=== PATIENT | female | born 1975 | race Caucasian/White ===

== ENCOUNTER → 2018-05-09 | Outpatient (CLI) | payer BC, OTHER ==
--- NOTE | 2018-05-09 17:13 | KCIC ---
Bilateral digital screening mammograms with 3-D tomosynthesis: Reason for examination: Routine screening. Comparison is made to previous studies dated 12/11/2015 and 11/21/2014. Bilateral mammograms in CC and oblique projections were obtained with 2-D imaging and 3-D tomosynthesis imaging on a Siemens Inspiration unit and reviewed on the workstation. Interpretation was made with the benefit of CAD. The skin and nipples show no abnormalities. No abnormal axillary lymph nodes are seen. Bilateral breast implants are now present. The breast parenchyma is extremely dense. (Breast density: Category D.) There is suggestion of some nodularity posterior inferiorly in the left breast on implant displacement oblique view and centrally in the left breast on implant displacement cc view. Further evaluation with ultrasound is recommended. There are no other new dominant masses, suspicious calcifications or architectural distortion. Impression: Dense fibroglandular tissue. Nodularity suggested in the left breast on implant displacement views. Recommend further evaluation with ultrasound. Your patient's mammogram demonstrates that she has dense breast tissue (breast density category C or D), which could hide abnormalities, and if she has other risk factors for breast cancer that have been identified, she might benefit from supplemental screening tests that may be suggested by you as her ordering physician. Dense breast tissue, in and of itself, is a relatively common condition. Therefore, this information is not provided to cause undue concern, but rather to raise your awareness and to promote discussion with your patient regarding the presence of other risk factors, in addition to dense breast tissue. Your patient's mammography results will be sent to her. BI-RAD Category 0: Incomplete. Needs additional imaging evaluation. "Our facility is accredited by the [employer] Mammography Program." This patient's information has been entered into a reminder system for the patient to be notified with the results of her examination and a target date for the next mammogram. Electronically signed by: Jacqueline German MD (05/09/2018 5:10 PM) [id number]
== END | disposition home or self-care (01) ==
LOC: KCIC MAMMO 15:02
PROVIDERS: ATTEND Specialist
DX: Z12.31 Encounter for screening mammogram for malignant neoplasm of breast (principal)
CPT/HCPCS: 77063; 77067

== ENCOUNTER → 2018-05-27 | Outpatient (CLI) | payer BC ==
--- NOTE | 2018-05-27 11:38 | KCIC ---
EXAM: Left breast sonogram. HISTORY: 42-year-old female presents for evaluation of nodularity within the left breast demonstrated on a mammogram dated 05/09/2018. TECHNIQUE: Sonographic imaging of the left breast including all 4 quadrants and the retroareolar region was performed. COMPARISON: Mammogram dated 05/09/2018. FINDINGS: There is an oval circumscribed hypoechoic lesion at the 9:00 position 7 cm from the nipple measuring 9.3 mm. This demonstrates no architectural distortion common blood flow or suspicious posterior shadowing. The imaging appearance favors a cyst. There is also a suspected complicated cyst or benign fibrocystic lesion at the 3:30 position 7 cm for the nipple measuring 5.4 mm. There is dense breast parenchyma. IMPRESSION: 1. 9.3 mm suspected cyst at the 9:00 position and 5.4 mm complicated cyst or fibrocystic lesion at the 3:30 position. This is superimposed on dense breast parenchyma. This may account for nodularity of concern on the recent mammogram. 2. BI-RADS Category 3: Probably benign finding(s). Short term follow up with a diagnostic left breast mammogram and sonogram in 6 months is recommended. Electronically signed by: Tari Fuentes MD (05/27/2018 11:35 AM) [id number]
== END | disposition home or self-care (01) ==
LOC: KCIC US 11:14
PROVIDERS: ATTEND Specialist
DX: R92.8 Other abnormal and inconclusive findings on diagnostic imaging of breast (principal)
CPT/HCPCS: 76641

== ENCOUNTER → 2018-12-08 | Outpatient (CLI) | payer BC ==
--- NOTE | 2018-12-08 11:33 | KCIC ---
EXAM: Left breast diagnostic mammogram with tomosynthesis; left breast sonogram. HISTORY: 43-year-old female presents for 6 month follow-up evaluation of suspected benign findings within left breast demonstrated on a mammogram and sonogram dated 05/09/2018 and 05/27/2018. TECHNIQUE: Full-field digital craniocaudal and mediolateral oblique 2D and 3D tomosynthesis images of the left breast are obtained for evaluation. Computer aided detection with Cloud[employer] software version 9.3 was applied. Sonographic imaging of the left breast including all 4 quadrants and the retroareolar region was performed. COMPARISON: 05/09/2018 and 05/27/2018 and 12/11/2015 BREAST PARENCHYMAL DENSITY: Level D - Extremely dense. FINDINGS: There is no new suspicious mass, microcalcification or region of architectural distortion. There is an unremarkable subpectoral breast implant. Sonographic imaging of the left breast demonstrates a 5.7 mm benign-appearing suspected complicated cyst or fibrocystic lesion at the 3:30 position 7 cm from the nipple, not significantly changed compared to the prior study. There is also a circumscribed lobulated hypoechoic lesion at the 9:00 position 7 cm from the nipple measuring 9.8 mm in maximum dimension. This is stable when allowing for differences in imaging technique. This demonstrates no internal blood flow. There is dense surrounding breast parenchyma. There is no new suspicious finding. IMPRESSION: 1. No significant change in a 5.7 mm suspected benign complicated cyst or fibrocystic lesion at the 3:30 position and 9.8 mm complicated cyst or fibroadenoma with surrounding dense breast parenchyma at the 9:00 position. There is no new suspicious mammographic or sonographic finding. 2. BI-RADS Category 3: Probably benign finding(s). Repeat short-term follow-up evaluation with a left breast sonogram in 6 months is recommended to confirm a year of stability. This corresponds with a previously established bilateral mammography interval. If your mammogram demonstrates that you have dense breast tissue, which could hide abnormalities, and if you have other risk factors for breast cancer that have been identified, you might benefit from supplemental screening tests that may be suggested by your ordering physician. Dense breast tissue, in and of itself, is a relatively common condition. This information is not provided to cause undue concern, but rather to raise your awareness and to promote discussion with your physician regarding the presence of other risk factors, in addition to dense breast tissue. A report of your mammography results will be sent to you and your physician. You should contact your physician if you have any questions or concerns regarding this report. Mammography is a sensitive method for finding small breast cancers, but it does not detect them all and is not a substitute for careful clinical examination. A negative mammogram does not negate a clinically suspicious finding and should not result in delay in biopsying a clinically suspicious abnormality. PQRS compliance statement - Patient information was entered into a reminder system with a target due date for the next mammogram. "Our facility is accredited by the [employer] Mammography Program." Electronically signed by: Tari Fuentes MD (12/08/2018 11:29 AM) [id number]
== END | disposition home or self-care (01) ==
LOC: KCIC MAMMO 10:27
PROVIDERS: ATTEND Specialist
DX: N64.89 Other specified disorders of breast (principal)
CPT/HCPCS: 76641; 77065; G0279; 77061

== ENCOUNTER → 2019-06-08 | Outpatient (CLI) | payer BC ==
--- NOTE | 2019-06-08 15:57 | KCIC ---
Bilateral diagnostic digital mammograms: Reason for examination: Follow-up left breast nodules. New right breast lump. Comparison is made to previous studies dated 12/08/2018 and 05/09/2018. Interpretation was made with the benefit of CAD. The skin and nipples show no abnormalities. No abnormal axillary lymph nodes are seen. Bilateral breast implants remain present in the subpectoralis position. The breast parenchyma is extremely dense. (Breast density: Category D.) There is a small circumscribed lesion in the retroareolar position of the right breast. There also continues to be some nodularity posterior laterally in the left breast seen best on CC view. There are no other dominant masses, suspicious calcifications or architectural distortion. Impression: Dense breasts with some subtle nodularity seen bilaterally in the retroareolar position of the right breast and posterior laterally in the left breast. Ultrasound to follow. Your patient's mammogram demonstrates that she has dense breast tissue (breast density category C or D), which could hide abnormalities, and if she has other risk factors for breast cancer that have been identified, she might benefit from supplemental screening tests that may be suggested by you as her ordering physician. Dense breast tissue, in and of itself, is a relatively common condition. Therefore, this information is not provided to cause undue concern, but rather to raise your awareness and to promote discussion with your patient regarding the presence of other risk factors, in addition to dense breast tissue. Your patient's mammography results will be sent to her. BI-RAD Category 0: Incomplete. Needs additional imaging evaluation. Bilateral breast ultrasound: Comparison is made to previous study dated 12/08/2018 and 05/27/2018. Bilateral breast ultrasound was performed including the retroareolar and axillary regions of both breasts. In the right breast in the retroareolar 12:00 position, there is a simple cyst measuring 1 cm in greatest dimension that corresponds to the area of clinical concern. No other cystic or solid nodules are seen. No abnormal appearing lymph nodes are seen in the right axilla. In the left breast, there continues to be 4.6 cm cystic lesion at the 3:30 position 7 cm from the nipple which is unchanged. There also continues to be 8.6 mm hypoechoic lesion consistent with fibrocystic lesion at the 9:00 position 7 cm from the nipple which has decreased in size. No new cystic or solid lesions are seen. No abnormal appearing lymph nodes are seen in the left axilla. IMPRESSION: Simple cyst in the retroareolar 12:00 position of the right breast corresponds to the area of new clinical concern. Continued presence of benign-appearing cystic and fibrocystic lesions of the left breast with improvement since previous exam. Recommend routine mammographic follow-up. BI-RADS Category 2: Benign. "Our facility is accredited by the [employer] Mammography [employer]." This patient's information has been entered into a reminder system for the patient to be notified with the results of her examination and a target date for the next mammogram. Electronically signed by: Jacqueline German MD (06/08/2019 3:54 PM) [facility]
== END | disposition home or self-care (01) ==
LOC: KCIC MAMMO 12:41
PROVIDERS: ATTEND Specialist
DX: N60.01 Solitary cyst of right breast (principal); N64.89 Other specified disorders of breast
CPT/HCPCS: 76641; 77066

== ENCOUNTER 2020-06-24 20:48 | Inpatient (IN) | payer BC ==
[~2020-06-24] VITALS: Ht 172.7 cm; Wt 75.0 kg
[2020-06-24] MEDS ORDERED: IV RINGERS,LACTATED 1000ML 1,000 ML IV SCH (21:15)
[2020-06-24 21:30] VITALS: BP 114/51
[2020-06-24 21:30] LABS: BASO # 0.1 x10^3/uL (0.0-0.2); BASO % 1 % (0-3); EOS % 0 % (0-3); HEMATOCRIT 37.7 % (36.0-47.0); HEMOGLOBIN 12.8 g/dL (12.0-15.5); LYMPH # 1.6 x10^3/uL (1.0-4.8); LYMPH % 14 % (24-48); MEAN CORPUSCULAR HEMOGLOBIN 33 pg (25-35); MEAN CORPUSCULAR HGB CONC 34 g/dL (31-37); MEAN CORPUSCULAR VOLUME 97 fL (79-100); MONO # 0.8 x10^3/uL (0.0-1.1); MONO % 7 % (0-9); NEUT # 9.4 x10^3/uL (1.8-7.7); NEUT % 78 % (31-73); PLATELET COUNT 256 x10^3/uL (140-400); RED BLOOD COUNT 3.91 x10^6/uL (3.50-5.40); RED CELL DISTRIBUTION WIDTH 12.9 % (11.5-14.5)
[2020-06-24] MEDS ORDERED: MORPHINE SULFATE 10 MG/ML VIAL. IV PRN (21:30)
[2020-06-24 21:34] LABS: CREATININE 0.9 mg/dL (0.6-1.0); GFR 67.7
[2020-06-24] MEDS ORDERED: IOHEXOL 300 MG/ML 100ML VIAL. IV ONE (22:00)
[2020-06-24] MEDS ORDERED: CONTRAST GIVEN. MC PRN (22:00)
[2020-06-24 22:08] LABS: BILIRUBIN,URINE NEGATIVE (NEG); CLARITY,URINE CLEAR; COLOR,URINE YELLOW; NITRITE,URINE NEGATIVE (NEG); PROTEIN,URINE NEGATIVE (NEG-TRACE); UROBILINOGEN,URINE 0.2 mg/dL (0.2 mg/dL)
[2020-06-24 22:17] LABS: BACTERIA,URINE FEW /HPF (0-FEW); RBC,URINE RARE /HPF (0-2); WBC,URINE RARE /HPF (0-4)
--- NOTE | 2020-06-24 22:25 | RAD ---
EXAM: Abdomen and pelvis CT with intravenous contrast. HISTORY: Right lower quadrant pain. TECHNIQUE: Computed tomographic images of the abdomen and pelvis were obtained following the administration of intravenous contrast. Multiplanar reformatting was performed. *One or more of the following individualized dose reduction techniques were utilized for this examination: 1. Automated exposure control. 2. Adjustment of the mA and/or kV according to patient size. 3. Use of iterative reconstruction technique. COMPARISON: None. FINDINGS: Evaluation of the lower thorax demonstrates no infiltrate or pleural effusion. There is partial visualization of implanted breast prostheses. The heart is normal in size. There is no hepatic lesion. The gallbladder, pancreas, spleen, adrenal glands and kidneys are unremarkable. There is a mildly dilated appendix with surrounding fatty stranding suggesting acute appendicitis. No free air or drainable fluid collection is seen. There is a soft tissue density structure within the right lower quadrant adjacent to cecum measuring 3.1 cm. This appears to communicate with the right gonadal vein and is likely the right ovary. The left ovary is similarly positioned within the left lower quadrant. The uterus is surgically absent. The bladder is nearly empty. There is trace pelvic free fluid. There are multiple pelvic surgical clips. There is no bowel obstruction or abnormal bowel wall thickening. There is normal caliber aorta. There is no lymphadenopathy. There is no suspicious osseous lesion. There is a transitional lumbosacral segment, a normal variant. There is grade 1 anterolisthesis at the lumbosacral junction. There is a tiny fat-containing umbilical hernia. IMPRESSION: 1. Suspected acute appendicitis. No free air or drainable fluid collection is seen. 2. Note is made that the ovaries are ectopically positioned within the bilateral lower quadrants status post hysterectomy. Electronically signed by: Tari Fuentes MD (06/24/2020 10:22 PM) [facility]
--- NOTE | 2020-06-24 22:46 | RAD ---
Exam: Ultrasound pelvis Indication: Right lower quadrant pain Technique: Real-time grayscale and color Doppler images of the pelvis were obtained by the department safe and vault service mechanic. Comparisons: CT same day FINDINGS: Uterus and ovaries are not visualized. There is a dilated tubular structure at the right adnexa which may relate to the inflamed appendix seen on CT. No free fluid. IMPRESSION: 1. Dilated to vascular structure in the right adnexa favored represent an inflamed appendix is seen on CT. 2. Uterus and ovaries are not visualized. Electronically signed by: Krystal Joseph MD (06/24/2020 10:43 PM) [facility]
[2020-06-24] MEDS: ONDANSETRON PF 4 MG/2 ML VIAL. IVP SCH (23:00)
[2020-06-24] MEDS ORDERED: LIDOCAINE 2% PF 5 ML VIAL. ONE (23:21)
[2020-06-24] MEDS ORDERED: PROPOFOL 10 MG/ML (20ML) VIAL. IV ONE (23:21)
[2020-06-24] MEDS ORDERED: ROCURONIUM 50 MG/5 ML VIAL. ONE (23:21)
[2020-06-24] MEDS ORDERED: fentaNYL PF VIAL 100 MCG/2 ML VIAL ONE (23:21)
--- NOTE | 2020-06-24 23:44 | PDOC ---
SURGICAL PROGRESS NOTE DATE: 06/24/20 TIME: 23:40 8 hour history of right lower quadrant pain. Only surgery hysterectomy many yers ago. Now with rbound and guarding RLQ and CT sheich chowed appendicitis and this was also seen on sono. Spbib witrh patrient and lshe wishes to proceed with azppendectomy. Will try lap appy and if not possible will have laparotomy. wbc 12,00 and she is afebrile. . Vital Signs Vital Signs Date Time Temp Pulse Resp B/P (MAP) Pulse Ox O2 Delivery O2 Flow Rate FiO2 06/24/20 22:40 Room Air 06/24/20 21:30 98.3 88 114/51 (72) 97 98.3 Labs Laboratory Tests Test 06/24/20 20:17 06/24/20 21:16 06/24/20 21:20 White Blood Count 12.0 x10^3/uL (4.0-11.0) Red Blood Count 3.91 x10^6/uL (3.50-5.40) Hemoglobin 12.8 g/dL (12.0-15.5) Hematocrit 37.7 % (36.0-47.0) Mean Corpuscular Volume 97 fL (79-100) Mean Corpuscular Hemoglobin 33 pg (25-35) Mean Corpuscular Hemoglobin Concent 34 g/dL (31-37) Red Cell Distribution Width 12.9 % (11.5-14.5) Platelet Count 256 x10^3/uL (140-400) Neutrophils (%) (Auto) 78 % (31-73) Lymphocytes (%) (Auto) 14 % (24-48) Monocytes (%) (Auto) 7 % (0-9) Eosinophils (%) (Auto) 0 % (0-3) Basophils (%) (Auto) 1 % (0-3) Neutrophils # (Auto) 9.4 x10^3/uL (1.8-7.7) Lymphocytes # (Auto) 1.6 x10^3/uL (1.0-4.8) Monocytes # (Auto) 0.8 x10^3/uL (0.0-1.1) Eosinophils # (Auto) 0.0 x10^3/uL (0.0-0.7) Basophils # (Auto) 0.1 x10^3/uL (0.0-0.2) Creatinine 0.9 mg/dL (0.6-1.0) Estimated GFR (Cockcroft-Gault) 67.7 Urine Collection Type Unknown Urine Color Yellow Urine Clarity Clear Urine pH 8.0 (<5.0-8.0) Urine Specific [place] 1.010 (1.000-1.030) Urine Protein Negative mg/dL (NEG-TRACE) Urine Glucose (UA) Negative mg/dL (NEG) Urine Ketones (Stick) Negative mg/dL (NEG) Urine Blood Trace (NEG) Urine Nitrite Negative (NEG) Urine Bilirubin Negative (NEG) Urine Urobilinogen Dipstick 0.2 mg/dL (0.2 mg/dL) Urine Leukocyte Esterase Negative (NEG) Urine RBC Rare /HPF (0-2) Urine WBC Rare /HPF (0-4) Urine Squamous Epithelial Cells Few /LPF Urine Bacteria Few /HPF (0-FEW) Urine Mucus Slight /LPF SARS-CoV-2 Antigen (Rapid) Negative (NEGATIVE) Laboratory Tests Test 06/24/20 20:17 06/24/20 21:16 06/24/20 21:20 White Blood Count 12.0 x10^3/uL (4.0-11.0) Red Blood Count 3.91 x10^6/uL (3.50-5.40) Hemoglobin 12.8 g/dL (12.0-15.5) Hematocrit 37.7 % (36.0-47.0) Mean Corpuscular Volume 97 fL (79-100) Mean Corpuscular Hemoglobin 33 pg (25-35) Mean Corpuscular Hemoglobin Concent 34 g/dL (31-37) Red Cell Distribution Width 12.9 % (11.5-14.5) Platelet Count 256 x10^3/uL (140-400) Neutrophils (%) (Auto) 78 % (31-73) Lymphocytes (%) (Auto) 14 % (24-48) Monocytes (%) (Auto) 7 % (0-9) Eosinophils (%) (Auto) 0 % (0-3) Basophils (%) (Auto) 1 % (0-3) Neutrophils # (Auto) 9.4 x10^3/uL (1.8-7.7) Lymphocytes # (Auto) 1.6 x10^3/uL (1.0-4.8) Monocytes # (Auto) 0.8 x10^3/uL (0.0-1.1) Eosinophils # (Auto) 0.0 x10^3/uL (0.0-0.7) Basophils # (Auto) 0.1 x10^3/uL (0.0-0.2) Creatinine 0.9 mg/dL (0.6-1.0) Estimated GFR (Cockcroft-Gault) 67.7 Urine Collection Type Unknown Urine Color Yellow Urine Clarity Clear Urine pH 8.0 (<5.0-8.0) Urine Specific [place] 1.010 (1.000-1.030) Urine Protein Negative mg/dL (NEG-TRACE) Urine Glucose (UA) Negative mg/dL (NEG) Urine Ketones (Stick) Negative mg/dL (NEG) Urine Blood Trace (NEG) Urine Nitrite Negative (NEG) Urine Bilirubin Negative (NEG) Urine Urobilinogen Dipstick 0.2 mg/dL (0.2 mg/dL) Urine Leukocyte Esterase Negative (NEG) Urine RBC Rare /HPF (0-2) Urine WBC Rare /HPF (0-4) Urine Squamous Epithelial Cells Few /LPF Urine Bacteria Few /HPF (0-FEW) Urine Mucus Slight /LPF SARS-CoV-2 Antigen (Rapid) Negative (NEGATIVE) ISABELL BLACKBURN MD Jun 24, 2020 23:44
[2020-06-24] MEDS ORDERED: PIPERACILLIN/TAZOBACTAM 3.375 GM in IV NORMAL SALINE 50ML 50 ML IV ONE (23:45)
[2020-06-24 23:51] LABS: CALCIUM 9.1 mg/dL (8.5-10.1); CREATININE 0.9 mg/dL (0.6-1.0); GFR 67.7; POTASSIUM 3.6 mmol/L (3.5-5.1)
[2020-06-24] MEDS ORDERED: BUPIVACAINE-EPI 0.5%-1:200000 MPF 30 ML VIAL. INJ ONE (23:55)
[2020-06-24 23:57] LABS: ALBUMIN 3.9 g/dL (3.4-5.0); TOTAL BILIRUBIN 0.7 mg/dL (0.2-1.0); TOTAL PROTEIN 7.9 g/dL (6.4-8.2)
[2020-06-25] VITALS (12 sets, daily range): BP systolic 74–119; BP diastolic 47–76
[2020-06-25] MEDS ORDERED: IV RINGERS,LACTATED 1000ML 1,000 ML IV SCH
[2020-06-25] MEDS ORDERED: HYDROmorphone 2 MG/ML VIAL IV PRN
[2020-06-25] MEDS ORDERED: fentaNYL PF VIAL 100 MCG/2 ML VIAL IV PRN ×2
[2020-06-25] MEDS ORDERED: MORPHINE SULFATE 2 MG/ML VIAL. IV PRN
[2020-06-25] MEDS ORDERED: ONDANSETRON PF 4 MG/2 ML VIAL. IV PRN
[2020-06-25] MEDS ORDERED: LIDOCAINE 1% PF 2 ML VIAL. ID PRN
[2020-06-25 00:05] LABS: PROTHROMBIN TIME PATIENT 13.5 SEC (11.7-14.0)
[2020-06-25] MEDS ORDERED: MIDAZOLAM HCL/PF 2 MG/2 ML VIAL. ONE (00:19)
[2020-06-25] MEDS ORDERED: DEXAMETHASONE SOD PHOS 4 MG/ML VIAL ONE (00:39)
[2020-06-25] MEDS ORDERED: ONDANSETRON PF 4 MG/2 ML VIAL. ONE (00:39)
[2020-06-25] MEDS ORDERED: DESFLURANE 31 TO 60 MINUTES IH ONE (00:39)
[2020-06-25] MEDS ORDERED: NEOSTIGMINE METHYLSULFATE 5 MG/5 ML SYRINGE. ONE (01:03)
[2020-06-25] MEDS ORDERED: GLYCOPYRROLATE 1 MG/5 ML VIAL. ONE (01:03)
[2020-06-25] MEDS ORDERED: fentaNYL PF VIAL 100 MCG/2 ML VIAL ONE (02:01)
[2020-06-25] MEDS ORDERED: BUPIVACAINE-EPI 0.5%-1:200000 MPF 30 ML VIAL. INJ ONE (03:15)
[2020-06-25] MEDS ORDERED: PIPERACILLIN/TAZOBACTAM 3.375 GM in IV NORMAL SALINE 50ML 50 ML IV ONE (03:30)
--- NOTE | 2020-06-25 03:44 | PDOC ---
SURGICAL PROGRESS NOTE DATE: 06/25/20 TIME: 03:40 Op NOte: Surgeon..................................... .................................Neri Pre op diag..................................................................acute appendicitis Post op diag................................................................Acute appendicitis with massive adhesions. A nesthesia..................................................................gener al Procedure..................................................................lap appy with enterolysis Drains.................................................................. ......none Fluids.........................................................................S ee anesthesia sheet Blood loss....... ............................................................50cc Condition...................................................... ..............satisfactory Vital Signs Vital Signs Date Time Temp Pulse Resp B/P (MAP) Pulse Ox O2 Delivery O2 Flow Rate FiO2 06/24/20 22:40 Room Air 06/24/20 21:30 98.3 88 114/51 (72) 97 98.3 Labs Laboratory Tests Test 06/24/20 20:17 06/24/20 21:16 06/24/20 21:20 06/24/20 23:50 White Blood Count 12.0 x10^3/uL (4.0-11.0) Red Blood Count 3.91 x10^6/uL (3.50-5.40) Hemoglobin 12.8 g/dL (12.0-15.5) Hematocrit 37.7 % (36.0-47.0) Mean Corpuscular Volume 97 fL (79-100) Mean Corpuscular Hemoglobin 33 pg (25-35) Mean Corpuscular Hemoglobin Concent 34 g/dL (31-37) Red Cell Distribution Width 12.9 % (11.5-14.5) Platelet Count 256 x10^3/uL (140-400) Neutrophils (%) (Auto) 78 % (31-73) Lymphocytes (%) (Auto) 14 % (24-48) Monocytes (%) (Auto) 7 % (0-9) Eosinophils (%) (Auto) 0 % (0-3) Basophils (%) (Auto) 1 % (0-3) Neutrophils # (Auto) 9.4 x10^3/uL (1.8-7.7) Lymphocytes # (Auto) 1.6 x10^3/uL (1.0-4.8) Monocytes # (Auto) 0.8 x10^3/uL (0.0-1.1) Eosinophils # (Auto) 0.0 x10^3/uL (0.0-0.7) Basophils # (Auto) 0.1 x10^3/uL (0.0-0.2) Sodium Level 138 mmol/L (136-145) Potassium Level 3.6 mmol/L (3.5-5.1) Chloride Level 100 mmol/L (98-107) Carbon Dioxide Level 29 mmol/L (21-32) Anion Gap 9 (6-14) Blood Urea Nitrogen 10 mg/dL (7-20) Creatinine 0.9 mg/dL (0.6-1.0) Estimated GFR (Cockcroft-Gault) 67.7 BUN/Creatinine Ratio 11 (6-20) Glucose Level 91 mg/dL (70-99) Calcium Level 9.1 mg/dL (8.5-10.1) Total Bilirubin 0.7 mg/dL (0.2-1.0) Aspartate Amino Transf (AST/SGOT) 12 U/L (15-37) Alanine Aminotransferase (ALT/SGPT) 18 U/L (14-59) Alkaline Phosphatase 63 U/L (46-116) Total Protein 7.9 g/dL (6.4-8.2) Albumin 3.9 g/dL (3.4-5.0) Albumin/Globulin Ratio 1.0 (1.0-1.7) Urine Collection Type Unknown Urine Color Yellow Urine Clarity Clear Urine pH 8.0 (<5.0-8.0) Urine Specific [place] 1.010 (1.000-1.030) Urine Protein Negative mg/dL (NEG-TRACE) Urine Glucose (UA) Negative mg/dL (NEG) Urine Ketones (Stick) Negative mg/dL (NEG) Urine Blood Trace (NEG) Urine Nitrite Negative (NEG) Urine Bilirubin Negative (NEG) Urine Urobilinogen Dipstick 0.2 mg/dL (0.2 mg/dL) Urine Leukocyte Esterase Negative (NEG) Urine RBC Rare /HPF (0-2) Urine WBC Rare /HPF (0-4) Urine Squamous Epithelial Cells Few /LPF Urine Bacteria Few /HPF (0-FEW) Urine Mucus Slight /LPF SARS-CoV-2 Antigen (Rapid) Negative (NEGATIVE) Prothrombin Time 13.5 SEC (11.7-14.0) Prothromb Time International Ratio 1.1 (0.8-1.1) Laboratory Tests Test 06/24/20 20:17 06/24/20 21:16 06/24/20 21:20 06/24/20 23:50 White Blood Count 12.0 x10^3/uL (4.0-11.0) Red Blood Count 3.91 x10^6/uL (3.50-5.40) Hemoglobin 12.8 g/dL (12.0-15.5) Hematocrit 37.7 % (36.0-47.0) Mean Corpuscular Volume 97 fL (79-100) Mean Corpuscular Hemoglobin 33 pg (25-35) Mean Corpuscular Hemoglobin Concent 34 g/dL (31-37) Red Cell Distribution Width 12.9 % (11.5-14.5) Platelet Count 256 x10^3/uL (140-400) Neutrophils (%) (Auto) 78 % (31-73) Lymphocytes (%) (Auto) 14 % (24-48) Monocytes (%) (Auto) 7 % (0-9) Eosinophils (%) (Auto) 0 % (0-3) Basophils (%) (Auto) 1 % (0-3) Neutrophils # (Auto) 9.4 x10^3/uL (1.8-7.7) Lymphocytes # (Auto) 1.6 x10^3/uL (1.0-4.8) Monocytes # (Auto) 0.8 x10^3/uL (0.0-1.1) Eosinophils # (Auto) 0.0 x10^3/uL (0.0-0.7) Basophils # (Auto) 0.1 x10^3/uL (0.0-0.2) Sodium Level 138 mmol/L (136-145) Potassium Level 3.6 mmol/L (3.5-5.1) Chloride Level 100 mmol/L (98-107) Carbon Dioxide Level 29 mmol/L (21-32) Anion Gap 9 (6-14) Blood Urea Nitrogen 10 mg/dL (7-20) Creatinine 0.9 mg/dL (0.6-1.0) Estimated GFR (Cockcroft-Gault) 67.7 BUN/Creatinine Ratio 11 (6-20) Glucose Level 91 mg/dL (70-99) Calcium Level 9.1 mg/dL (8.5-10.1) Total Bilirubin 0.7 mg/dL (0.2-1.0) Aspartate Amino Transf (AST/SGOT) 12 U/L (15-37) Alanine Aminotransferase (ALT/SGPT) 18 U/L (14-59) Alkaline Phosphatase 63 U/L (46-116) Total Protein 7.9 g/dL (6.4-8.2) Albumin 3.9 g/dL (3.4-5.0) Albumin/Globulin Ratio 1.0 (1.0-1.7) Urine Collection Type Unknown Urine Color Yellow Urine Clarity Clear Urine pH 8.0 (<5.0-8.0) Urine Specific [place] 1.010 (1.000-1.030) Urine Protein Negative mg/dL (NEG-TRACE) Urine Glucose (UA) Negative mg/dL (NEG) Urine Ketones (Stick) Negative mg/dL (NEG) Urine Blood Trace (NEG) Urine Nitrite Negative (NEG) Urine Bilirubin Negative (NEG) Urine Urobilinogen Dipstick 0.2 mg/dL (0.2 mg/dL) Urine Leukocyte Esterase Negative (NEG) Urine RBC Rare /HPF (0-2) Urine WBC Rare /HPF (0-4) Urine Squamous Epithelial Cells Few /LPF Urine Bacteria Few /HPF (0-FEW) Urine Mucus Slight /LPF SARS-CoV-2 Antigen (Rapid) Negative (NEGATIVE) Prothrombin Time 13.5 SEC (11.7-14.0) Prothromb Time International Ratio 1.1 (0.8-1.1) ISABELL BLACKBURN MD Jun 25, 2020 03:44
[2020-06-25] MEDS ORDERED: 0.9 % SODIUM CHLORIDE 10 ML DISP.SYRIN. IV PRN (03:45)
[2020-06-25] MEDS ORDERED: KETOROLAC 15 MG/ML VIAL. IVP PRN (03:45)
[2020-06-25] MEDS ORDERED: NALOXONE 0.4 MG/ML VIAL. IV PRN (03:45)
[2020-06-25] MEDS ORDERED: KETOROLAC 30 MG/ML VIAL. ONE (03:55)
[2020-06-25] MEDS: PROCHLORPERAZINE 10 MG/2 ML VIAL. IV PRN ×2 (03:56→04:15)
[2020-06-25] MEDS ORDERED: POTASSIUM CL 20MEQ-0.45% NACL 1,000 ML IV SCH (04:00)
[2020-06-25] MEDS ORDERED: IV NORMAL SALINE 1000ML BAG 1,000 ML IV SCH (04:00)
[2020-06-25] MEDS ORDERED: KETOROLAC 30 MG/ML VIAL. IVP ONE (04:15)
[2020-06-25] MEDS: ONDANSETRON PF 4 MG/2 ML VIAL. IVP SCH ×4 (05:00→18:00)
--- NOTE | 2020-06-25 08:39 | PDOC1 ---
History and Physical Date of Admission Date of Admission DATE: 06/25/20 TIME: 08:28 Identification/Chief Complaint Chief Complaint RLQ pain Source Source: Patient History of Present Illness History of Present Illness 44 y/o presented with severe RLQ pain that continued to worsen through out the day. She denies any N/V, CP, SOB or fevers. CT scan indicated acute appendicitis. Pelvic sono no evidence ovarian torsion. Past Medical History Cardiovascular: No pertinent hx Pulmonary: No pertinent hx GI: No pertinent hx Heme/Onc: No pertinent hx Psych: No pertinent hx ENT: No pertinent hx Renal/: No pertinent hx Past Surgical History Past Surgical History: Hysterectomy, Other (breast augmentation) Current Medications Current Medications Current Medications Ringer's Solution 1,000 ml @ 150 mls/hr Q6H40M IV ; Start 06/24/20 at 21:15; Stop 06/25/20 at 05:00; Status DC Ondansetron HCl (Zofran) 8 mg Q6HRS IVP ; Start 06/24/20 at 23:00 Morphine Sulfate (Morphine Sulfate) 6 mg PRN Q2HRS PRN IV PAIN; Start 06/24/20 at 21:30 Iohexol (Omnipaque 300 Mg/ml) 75 ml 1X ONCE IV Last administered on 06/24/20at 22:04; Start 06/24/20 at 22:00; Stop 06/24/20 at 22:01; Status DC Info (CONTRAST GIVEN -- Rx MONITORING) 1 each PRN DAILY PRN MC SEE COMMENTS; Start 06/24/20 at 22:00; Stop 06/26/20 at 21:59 Propofol (Diprivan) 200 mg STK-MED ONCE IV ; Start 06/24/20 at 23:21; Stop 06/24/20 at 23:21; Status DC Lidocaine HCl (Lidocaine Pf 2% Vial) 5 ml STK-MED ONCE .ROUTE ; Start 06/24/20 at 23:21; Stop 06/24/20 at 23:21; Status DC Fentanyl Citrate (Fentanyl 2ml Vial) 100 mcg STK-MED ONCE .ROUTE ; Start 06/24/20 at 23:21; Stop 06/24/20 at 23:21; Status DC Rocuronium [place] (Zemuron) 50 mg STK-MED ONCE .ROUTE ; Start 06/24/20 at 23:21; Stop 06/24/20 at 23:21; Status DC Piperacillin Sod/ Tazobactam Sod 3.375 gm/Sodium Chloride 50 ml @ 100 mls/hr 1X ONCE IV Last administered on 06/24/20at 23:47; Start 06/24/20 at 23:45; Stop 06/25/20 at 00:14; Status DC Bupivacaine HCl/ Epinephrine Bitart (Sensorcain-Epi 0.5%-1:909906 Mpf) 30 ml 1X ONCE INJ Last administered on 06/25/20at 00:52; Start 06/24/20 at 23:55; Stop 06/24/20 at 23:56; Status DC Ondansetron HCl (Zofran) 4 mg PRN Q6HRS PRN IV NAUSEA/VOMITING Last administered on 06/25/20at 03:50; Start 06/25/20 at 00:00; Stop 06/25/20 at 23:59 Fentanyl Citrate (Fentanyl 2ml Vial) 25 mcg PRN Q5MIN PRN IV MILD PAIN 1-3; Start 06/25/20 at 00:00; Stop 06/25/20 at 23:59 Fentanyl Citrate (Fentanyl 2ml Vial) 50 mcg PRN Q5MIN PRN IV MODERATE TO SEVERE PAIN; Start 06/25/20 at 00:00; Stop 06/25/20 at 23:59 Morphine Sulfate (Morphine Sulfate) 1 mg PRN Q10MIN PRN IV SEVERE PAIN 7-10; Start 06/25/20 at 00:00; Stop 06/25/20 at 23:59 Ringer's Solution 1,000 ml @ 30 mls/hr Q24H IV ; Start 06/25/20 at 00:00; Stop 06/25/20 at 11:59 Lidocaine HCl (Xylocaine-Mpf 1% 2ml Vial) 2 ml PRN 1X PRN ID PRIOR TO IV START; Start 06/25/20 at 00:00; Stop 06/25/20 at 23:59 Hydromorphone HCl (Dilaudid) 0.5 mg PRN Q10MIN PRN IV SEV PAIN, Second choice; Start 06/25/20 at 00:00; Stop 06/25/20 at 23:59 Prochlorperazine Edisylate (Compazine) 5 mg PACU PRN PRN IV NAUSEA, MRX1 Last administered on 06/25/20at 04:15; Start 06/25/20 at 00:00; Stop 06/25/20 at 23:59 Midazolam HCl (Versed) 2 mg STK-MED ONCE .ROUTE ; Start 06/25/20 at 00:19; Stop 06/25/20 at 00:19; Status DC Ondansetron HCl (Zofran) 4 mg STK-MED ONCE .ROUTE ; Start 06/25/20 at 00:39; Stop 06/25/20 at 00:40; Status DC Dexamethasone Sodium Phosphate (Decadron) 4 mg STK-MED ONCE .ROUTE ; Start 06/25/20 at 00:39; Stop 06/25/20 at 00:40; Status DC Desflurane (Suprane) 30 ml STK-MED ONCE IH ; Start 06/25/20 at 00:39; Stop 06/25/20 at 00:40; Status DC Glycopyrrolate (Robinul) 1 mg STK-MED ONCE .ROUTE ; Start 06/25/20 at 01:03; Stop 06/25/20 at 01:04; Status DC Neostigmine [place] (Neostigmine Methylsulfate) 5 mg STK-MED ONCE .ROUTE ; Start 06/25/20 at 01:03; Stop 06/25/20 at 01:04; Status DC Fentanyl Citrate (Fentanyl 2ml Vial) 100 mcg STK-MED ONCE .ROUTE ; Start 06/25/20 at 02:01; Stop 06/25/20 at 02:01; Status DC Bupivacaine HCl/ Epinephrine Bitart (Sensorcain-Epi 0.5%-1:860237 Mpf) 30 ml 1X ONCE INJ Last administered on 06/25/20at 03:15; Start 06/25/20 at 03:15; Stop 06/25/20 at 03:16; Status DC Piperacillin Sod/ Tazobactam Sod 3.375 gm/Sodium Chloride 50 ml @ 100 mls/hr ONCE ONCE IV Last administered on 06/25/20at 04:30; Start 06/25/20 at 03:30; Stop 06/25/20 at 03:59; Status DC Ketorolac Tromethamine (Toradol 30mg Vial) 30 mg STK-MED ONCE .ROUTE ; Start 06/25/20 at 03:55; Stop 06/25/20 at 03:55; Status DC Famotidine (Pepcid) 20 mg BID PO ; Start 06/25/20 at 09:00 Sodium Chloride (Normal Saline Flush) 3 ml QSHIFT PRN IV AFTER MEDS AND BLOOD DRAWS; Start 06/25/20 at 03:45 Potassium Chloride/Sodium Chloride 1,000 ml @ 100 mls/hr Q10H IV Last administered on 06/25/20at 04:51; Start 06/25/20 at 04:00 Naloxone HCl (Narcan) 0.4 mg PRN Q2MIN PRN IV SEE INSTRUCTIONS; Start 06/25/20 at 03:45 Sodium Chloride 1,000 ml @ 25 mls/hr Q24H IV ; Start 06/25/20 at 04:00 Ketorolac Tromethamine (Toradol 15mg Vial) 15 mg PRN Q6HRS PRN IVP I NFLAMMATION; Start 06/25/20 at 03:45; Stop 06/30/20 at 03:44 Piperacillin Sod/ Tazobactam Sod 3.375 gm/Sodium Chloride 50 ml @ 100 mls/hr Q6H IV ; Start 06/25/20 at 10:00 Ketorolac Tromethamine (Toradol 30mg Vial) 30 mg 1X ONCE IVP Last administered on 06/25/20at 04:00; Start 06/25/20 at 04:15; Stop 06/25/20 at 04:16; Status DC Allergies Allergies: Coded Allergies: No Known Drug Allergies (Unverified , 06/24/20) ROS General: YES: Chills, Malaise; No: Night Sweats, Fatigue, Appetite, Other PSYCHOLOGICAL ROS: No: Anxiety, Behavioral Disorder, Concentration difficultie, Decreased libido, Depression, Disorientation, Hallucinations, Hostility, Irritablity, Memory difficulties, Mood Swings, Obsessive thoughts, Physical abuse, Sexual abuse, Sleep disturbances, Suicidal ideation, Other Eyes: No Blurry vision, No Decreased vision, No Double vision, No Dry eyes, No Excessive tearing, No Eye Pain, No Itchy Eyes, No Loss of vision, No Photophobia, No Scotomata, No Uses contacts, No Uses glasses, No Other HEENT: No: Heacaches, Visual Changes, Hearing change, Nasal congestion, Nasal discharge, Oral lesions, Sinus pain, Sore Throat, Epistaxis, Sneezing, Snoring, Tinnitus, Vertigo, Vocal changes, Other ALLERGY AND IMMUNOLOGY: No: Hives, Insect Bite Sensitivity, Itchy/Watery Eyes, Nasal Congestion, Post Nasal Drip, Seasonal Allergies, Other Hematological and Lymphatic: No: Bleeding Problems, Blood Clots, Blood Transfusions, Brusing, Night Sweats, Pallor, Swollen Lymph Nodes, Other ENDOCRINE: No: Breast Changes, Galactorrhea, Hair Pattern Changes, Hot Flashes, Malaise/lethargy, Mood Swings, Palpitations, Polydipsia/polyuria, Skin Changes, Temperature Intolerance, Unexpected Weight Changes, Other Breast: No New/Changing Breast Lumps, No Nipple changes, No Nipple discharge, No Other Respiratory: No: Cough, Hemoptysis, Orthopnea, Pleuritic Pain, Shortness of breath, SOB with excertion, Sputum Changes, Stridor, Tachypnea, Wheezing, Other Cardiovascular: No Chest Pain, No Palpitations, No Orthopnea, No Paroxysmal Noc. Dyspnea, No Edema, No Lt Headedness, No Other Gastrointestinal: Yes Abdominal Pain Genitourinary: YES Urgency; No Dysuria, No Frequency, No Incontinence, No Hematuria, No Retention, No Discharge, No Pain, No Flank Pain, No Other, No , No , No , No , No , No , No Physical Exam General: Alert, Oriented X3, Cooperative HEENT: Atraumatic Heart: S1S2 Breasts: Normal Abdomen: Normal bowel sounds, Soft, Other (RLQ tenderness with palpation and rebound tenderness) Rectal Exam: not examined Vitals Vitals Vital Signs Date Time Temp Pulse Resp B/P (MAP) Pulse Ox O2 Delivery O2 Flow Rate FiO2 06/25/20 07:30 60 18 82/47 (59) 94 Room Air 06/25/20 05:43 98.2 0.5 98.2 Labs Labs Laboratory Tests Test 06/24/20 20:17 06/24/20 21:16 06/24/20 21:20 06/24/20 23:50 White Blood Count 12.0 x10^3/uL (4.0-11.0) Red Blood Count 3.91 x10^6/uL (3.50-5.40) Hemoglobin 12.8 g/dL (12.0-15.5) Hematocrit 37.7 % (36.0-47.0) Mean Corpuscular Volume 97 fL (79-100) Mean Corpuscular Hemoglobin 33 pg (25-35) Mean Corpuscular Hemoglobin Concent 34 g/dL (31-37) Red Cell Distribution Width 12.9 % (11.5-14.5) Platelet Count 256 x10^3/uL (140-400) Neutrophils (%) (Auto) 78 % (31-73) Lymphocytes (%) (Auto) 14 % (24-48) Monocytes (%) (Auto) 7 % (0-9) Eosinophils (%) (Auto) 0 % (0-3) Basophils (%) (Auto) 1 % (0-3) Neutrophils # (Auto) 9.4 x10^3/uL (1.8-7.7) Lymphocytes # (Auto) 1.6 x10^3/uL (1.0-4.8) Monocytes # (Auto) 0.8 x10^3/uL (0.0-1.1) Eosinophils # (Auto) 0.0 x10^3/uL (0.0-0.7) Basophils # (Auto) 0.1 x10^3/uL (0.0-0.2) Sodium Level 138 mmol/L (136-145) Potassium Level 3.6 mmol/L (3.5-5.1) Chloride Level 100 mmol/L (98-107) Carbon Dioxide Level 29 mmol/L (21-32) Anion Gap 9 (6-14) Blood Urea Nitrogen 10 mg/dL (7-20) Creatinine 0.9 mg/dL (0.6-1.0) Estimated GFR (Cockcroft-Gault) 67.7 BUN/Creatinine Ratio 11 (6-20) Glucose Level 91 mg/dL (70-99) Calcium Level 9.1 mg/dL (8.5-10.1) Total Bilirubin 0.7 mg/dL (0.2-1.0) Aspartate Amino Transf (AST/SGOT) 12 U/L (15-37) Alanine Aminotransferase (ALT/SGPT) 18 U/L (14-59) Alkaline Phosphatase 63 U/L (46-116) Total Protein 7.9 g/dL (6.4-8.2) Albumin 3.9 g/dL (3.4-5.0) Albumin/Globulin Ratio 1.0 (1.0-1.7) Urine Collection Type Unknown Urine Color Yellow Urine Clarity Clear Urine pH 8.0 (<5.0-8.0) Urine Specific [place] 1.010 (1.000-1.030) Urine Protein Negative mg/dL (NEG-TRACE) Urine Glucose (UA) Negative mg/dL (NEG) Urine Ketones (Stick) Negative mg/dL (NEG) Urine Blood Trace (NEG) Urine Nitrite Negative (NEG) Urine Bilirubin Negative (NEG) Urine Urobilinogen Dipstick 0.2 mg/dL (0.2 mg/dL) Urine Leukocyte Esterase Negative (NEG) Urine RBC Rare /HPF (0-2) Urine WBC Rare /HPF (0-4) Urine Squamous Epithelial Cells Few /LPF Urine Bacteria Few /HPF (0-FEW) Urine Mucus Slight /LPF SARS-CoV-2 Antigen (Rapid) Negative (NEGATIVE) Prothrombin Time 13.5 SEC (11.7-14.0) Prothromb Time International Ratio 1.1 (0.8-1.1) Laboratory Tests Test 06/24/20 20:17 06/24/20 21:16 06/24/20 21:20 06/24/20 23:50 White Blood Count 12.0 x10^3/uL (4.0-11.0) Red Blood Count 3.91 x10^6/uL (3.50-5.40) Hemoglobin 12.8 g/dL (12.0-15.5) Hematocrit 37.7 % (36.0-47.0) Mean Corpuscular Volume 97 fL (79-100) Mean Corpuscular Hemoglobin 33 pg (25-35) Mean Corpuscular Hemoglobin Concent 34 g/dL (31-37) Red Cell Distribution Width 12.9 % (11.5-14.5) Platelet Count 256 x10^3/uL (140-400) Neutrophils (%) (Auto) 78 % (31-73) Lymphocytes (%) (Auto) 14 % (24-48) Monocytes (%) (Auto) 7 % (0-9) Eosinophils (%) (Auto) 0 % (0-3) Basophils (%) (Auto) 1 % (0-3) Neutrophils # (Auto) 9.4 x10^3/uL (1.8-7.7) Lymphocytes # (Auto) 1.6 x10^3/uL (1.0-4.8) Monocytes # (Auto) 0.8 x10^3/uL (0.0-1.1) Eosinophils # (Auto) 0.0 x10^3/uL (0.0-0.7) Basophils # (Auto) 0.1 x10^3/uL (0.0-0.2) Sodium Level 138 mmol/L (136-145) Potassium Level 3.6 mmol/L (3.5-5.1) Chloride Level 100 mmol/L (98-107) Carbon Dioxide Level 29 mmol/L (21-32) Anion Gap 9 (6-14) Blood Urea Nitrogen 10 mg/dL (7-20) Creatinine 0.9 mg/dL (0.6-1.0) Estimated GFR (Cockcroft-Gault) 67.7 BUN/Creatinine Ratio 11 (6-20) Glucose Level 91 mg/dL (70-99) Calcium Level 9.1 mg/dL (8.5-10.1) Total Bilirubin 0.7 mg/dL (0.2-1.0) Aspartate Amino Transf (AST/SGOT) 12 U/L (15-37) Alanine Aminotransferase (ALT/SGPT) 18 U/L (14-59) Alkaline Phosphatase 63 U/L (46-116) Total Protein 7.9 g/dL (6.4-8.2) Albumin 3.9 g/dL (3.4-5.0) Albumin/Globulin Ratio 1.0 (1.0-1.7) Urine Collection Type Unknown Urine Color Yellow Urine Clarity Clear Urine pH 8.0 (<5.0-8.0) Urine Specific [place] 1.010 (1.000-1.030) Urine Protein Negative mg/dL (NEG-TRACE) Urine Glucose (UA) Negative mg/dL (NEG) Urine Ketones (Stick) Negative mg/dL (NEG) Urine Blood Trace (NEG) Urine Nitrite Negative (NEG) Urine Bilirubin Negative (NEG) Urine Urobilinogen Dipstick 0.2 mg/dL (0.2 mg/dL) Urine Leukocyte Esterase Negative (NEG) Urine RBC Rare /HPF (0-2) Urine WBC Rare /HPF (0-4) Urine Squamous Epithelial Cells Few /LPF Urine Bacteria Few /HPF (0-FEW) Urine Mucus Slight /LPF SARS-CoV-2 Antigen (Rapid) Negative (NEGATIVE) Prothrombin Time 13.5 SEC (11.7-14.0) Prothromb Time International Ratio 1.1 (0.8-1.1) VTE Prophylaxis Ordered VTE Prophylaxis Devices: Yes VTE Pharmacological Prophylaxi: No Assessment/Plan Assessment/Plan A: Acute Appendicitis P: Admit for acute appendicitis. Consult Dr. He for surgery. Justifications for Admission Other Justification TELMA CLAYTON Jr, MD Jun 25, 2020 08:39
[2020-06-25] MEDS ORDERED: HYDR-3164 PO (08:44)
[2020-06-25] MEDS ORDERED: IBUP-1060 PO (08:44)
--- NOTE | 2020-06-25 08:45 | DISCH ---
DISCHARGE INSTRUCTIONS Condition on Discharge Condition on Discharge: Stable Activity After Discharge Activity Instructions for Disc: Activity as tolerated Lifting Instructions after Dis: No heavy lifting Driving Instructions after Dis: Do not drive today Diet after Discharge Diet after Discharge: Regular Contacting the DRMiriam after DC Call your doctor for: Concerns you may have Follow-Up Follow up with: Dr. He in 1 week TELMA CLAYTON Jr, MD Jun 25, 2020 08:45
[2020-06-25] MEDS ORDERED: FAMOTIDINE 20 MG TABLET. PO SCH (09:00)
[2020-06-25] MEDS ORDERED: PIPERACILLIN/TAZOBACTAM 3.375 GM in IV NORMAL SALINE 50ML 50 ML IV SCH (10:00)
[2020-06-25] MEDS ORDERED: HYDROcodone/APAP 5/325MG 1 TAB TABLET PO PRN (10:15)
--- NOTE | 2020-06-25 10:30 | NUR ---
Pt called and complained of anxiety like her "skin feels like its crawling". Call placed to Dr. Vargas and order for Xanax 0.5mg X1 if we do not have her Viibryd in the pharmacy. Spoke with [facility] in pharmacy and we do not carry Viibryd. I will given the Xanax as ordered.
[2020-06-25] MEDS: HYDROcodone/APAP 5/325MG 1 TAB TABLET PO PRN ×2 (10:39→17:05)
[2020-06-25] MEDS ORDERED: ALPRAZolam 1 MG TABLET PO ONE (10:45)
--- NOTE | 2020-06-25 13:35 | PDOC ---
SURGICAL PROGRESS NOTE DATE: 06/25/20 TIME: 13:26 POD #0 Patient doing well with no nausea and taking PO liquids without problems. wounds WNL without complication and no bleeding. She is up and voiding without problems. Home today and instructions given. . Vital Signs Vital Signs Date Time Temp Pulse Resp B/P (MAP) Pulse Ox O2 Delivery O2 Flow Rate FiO2 06/25/20 11:30 98.5 56 18 100/53 (69) 96 Room Air 98.5 06/25/20 05:43 0.5 I&O Intake and Output 06/25/20 07:00 Intake Total 1900 ml Output Total 50 ml Balance 1850 ml Intake Oral 0 ml IV Total 1900 ml Output Urine Total 0 ml Estimated Blood Loss 50 ml Labs Laboratory Tests Test 06/24/20 20:17 06/24/20 21:16 06/24/20 21:20 06/24/20 23:50 White Blood Count 12.0 x10^3/uL (4.0-11.0) Red Blood Count 3.91 x10^6/uL (3.50-5.40) Hemoglobin 12.8 g/dL (12.0-15.5) Hematocrit 37.7 % (36.0-47.0) Mean Corpuscular Volume 97 fL (79-100) Mean Corpuscular Hemoglobin 33 pg (25-35) Mean Corpuscular Hemoglobin Concent 34 g/dL (31-37) Red Cell Distribution Width 12.9 % (11.5-14.5) Platelet Count 256 x10^3/uL (140-400) Neutrophils (%) (Auto) 78 % (31-73) Lymphocytes (%) (Auto) 14 % (24-48) Monocytes (%) (Auto) 7 % (0-9) Eosinophils (%) (Auto) 0 % (0-3) Basophils (%) (Auto) 1 % (0-3) Neutrophils # (Auto) 9.4 x10^3/uL (1.8-7.7) Lymphocytes # (Auto) 1.6 x10^3/uL (1.0-4.8) Monocytes # (Auto) 0.8 x10^3/uL (0.0-1.1) Eosinophils # (Auto) 0.0 x10^3/uL (0.0-0.7) Basophils # (Auto) 0.1 x10^3/uL (0.0-0.2) Sodium Level 138 mmol/L (136-145) Potassium Level 3.6 mmol/L (3.5-5.1) Chloride Level 100 mmol/L (98-107) Carbon Dioxide Level 29 mmol/L (21-32) Anion Gap 9 (6-14) Blood Urea Nitrogen 10 mg/dL (7-20) Creatinine 0.9 mg/dL (0.6-1.0) Estimated GFR (Cockcroft-Gault) 67.7 BUN/Creatinine Ratio 11 (6-20) Glucose Level 91 mg/dL (70-99) Calcium Level 9.1 mg/dL (8.5-10.1) Total Bilirubin 0.7 mg/dL (0.2-1.0) Aspartate Amino Transf (AST/SGOT) 12 U/L (15-37) Alanine Aminotransferase (ALT/SGPT) 18 U/L (14-59) Alkaline Phosphatase 63 U/L (46-116) Total Protein 7.9 g/dL (6.4-8.2) Albumin 3.9 g/dL (3.4-5.0) Albumin/Globulin Ratio 1.0 (1.0-1.7) Urine Collection Type Unknown Urine Color Yellow Urine Clarity Clear Urine pH 8.0 (<5.0-8.0) Urine Specific [place] 1.010 (1.000-1.030) Urine Protein Negative mg/dL (NEG-TRACE) Urine Glucose (UA) Negative mg/dL (NEG) Urine Ketones (Stick) Negative mg/dL (NEG) Urine Blood Trace (NEG) Urine Nitrite Negative (NEG) Urine Bilirubin Negative (NEG) Urine Urobilinogen Dipstick 0.2 mg/dL (0.2 mg/dL) Urine Leukocyte Esterase Negative (NEG) Urine RBC Rare /HPF (0-2) Urine WBC Rare /HPF (0-4) Urine Squamous Epithelial Cells Few /LPF Urine Bacteria Few /HPF (0-FEW) Urine Mucus Slight /LPF SARS-CoV-2 Antigen (Rapid) Negative (NEGATIVE) Prothrombin Time 13.5 SEC (11.7-14.0) Prothromb Time International Ratio 1.1 (0.8-1.1) Laboratory Tests Test 06/24/20 20:17 06/24/20 21:16 06/24/20 21:20 06/24/20 23:50 White Blood Count 12.0 x10^3/uL (4.0-11.0) Red Blood Count 3.91 x10^6/uL (3.50-5.40) Hemoglobin 12.8 g/dL (12.0-15.5) Hematocrit 37.7 % (36.0-47.0) Mean Corpuscular Volume 97 fL (79-100) Mean Corpuscular Hemoglobin 33 pg (25-35) Mean Corpuscular Hemoglobin Concent 34 g/dL (31-37) Red Cell Distribution Width 12.9 % (11.5-14.5) Platelet Count 256 x10^3/uL (140-400) Neutrophils (%) (Auto) 78 % (31-73) Lymphocytes (%) (Auto) 14 % (24-48) Monocytes (%) (Auto) 7 % (0-9) Eosinophils (%) (Auto) 0 % (0-3) Basophils (%) (Auto) 1 % (0-3) Neutrophils # (Auto) 9.4 x10^3/uL (1.8-7.7) Lymphocytes # (Auto) 1.6 x10^3/uL (1.0-4.8) Monocytes # (Auto) 0.8 x10^3/uL (0.0-1.1) Eosinophils # (Auto) 0.0 x10^3/uL (0.0-0.7) Basophils # (Auto) 0.1 x10^3/uL (0.0-0.2) Sodium Level 138 mmol/L (136-145) Potassium Level 3.6 mmol/L (3.5-5.1) Chloride Level 100 mmol/L (98-107) Carbon Dioxide Level 29 mmol/L (21-32) Anion Gap 9 (6-14) Blood Urea Nitrogen 10 mg/dL (7-20) Creatinine 0.9 mg/dL (0.6-1.0) Estimated GFR (Cockcroft-Gault) 67.7 BUN/Creatinine Ratio 11 (6-20) Glucose Level 91 mg/dL (70-99) Calcium Level 9.1 mg/dL (8.5-10.1) Total Bilirubin 0.7 mg/dL (0.2-1.0) Aspartate Amino Transf (AST/SGOT) 12 U/L (15-37) Alanine Aminotransferase (ALT/SGPT) 18 U/L (14-59) Alkaline Phosphatase 63 U/L (46-116) Total Protein 7.9 g/dL (6.4-8.2) Albumin 3.9 g/dL (3.4-5.0) Albumin/Globulin Ratio 1.0 (1.0-1.7) Urine Collection Type Unknown Urine Color Yellow Urine Clarity Clear Urine pH 8.0 (<5.0-8.0) Urine Specific [place] 1.010 (1.000-1.030) Urine Protein Negative mg/dL (NEG-TRACE) Urine Glucose (UA) Negative mg/dL (NEG) Urine Ketones (Stick) Negative mg/dL (NEG) Urine Blood Trace (NEG) Urine Nitrite Negative (NEG) Urine Bilirubin Negative (NEG) Urine Urobilinogen Dipstick 0.2 mg/dL (0.2 mg/dL) Urine Leukocyte Esterase Negative (NEG) Urine RBC Rare /HPF (0-2) Urine WBC Rare /HPF (0-4) Urine Squamous Epithelial Cells Few /LPF Urine Bacteria Few /HPF (0-FEW) Urine Mucus Slight /LPF SARS-CoV-2 Antigen (Rapid) Negative (NEGATIVE) Prothrombin Time 13.5 SEC (11.7-14.0) Prothromb Time International Ratio 1.1 (0.8-1.1) ISABELL BLACKBURN MD Jun 25, 2020 13:35
--- NOTE | 2020-06-25 13:36 | OP ---
DATE OF SURGERY: SURGEON: Nik Blackburn MD PREOPERATIVE DIAGNOSIS: Acute appendicitis. POSTOPERATIVE DIAGNOSES: Acute appendicitis and massive intra-abdominal adhesions in the pelvis and right abdomen. ANESTHESIA: General. PROCEDURE: Laparoscopic appendectomy with massive enterolysis. TECHNIQUE: Under general anesthesia, the patient was properly prepped and draped in routine fashion. We prepped ____ as we did not know if we had to open or what ports would be necessary. She had previous surgery in the pelvis with a radical hysterectomy and as such, we did anticipate that there could be some problem with adhesions. At any rate, we decided to go in the right upper quadrant and an incision was made about an inch or two below the costal margin on the right lateral abdomen about a quarter of an inch in length. We then pulled up with towel clips on each side, passed a Veress needle into the peritoneal cavity. We put about 3 mL of saline, let it go by gravity into the peritoneal cavity. We then insufflated the abdomen up to 15. We then placed a 5 mm port and then a camera. Luckily, there were no adhesions to the anterior abdominal wall though there were adhesions in the right abdomen and pelvis. As such, we placed about an inch or two below the umbilicus, a 10 mm port, made a small longitudinal incision and placed an 11, 12 mm port there. The noncutting 5 mm port was placed above the umbilicus and we placed the patient in Trendelenburg position, left side down. We then put the camera in the supraumbilical port and put the DeBakeys and the [place]cocks into the ports. There were lot of adhesions, we could not even see the cecum. There were adhesions to the right lateral abdomen. These were taken down just pulling them away and also using Harmonic scalpel. We made certain not to injure any intra-abdominal contents, did not injure the cecum or any other problems. We then slowly took these adhesions down and could see the cecum and as we tried to roll it over, there was obvious bowel adherent to this area. Luckily, this came away as we just pushed it away and we could see the tip of the appendix, which was swollen. There was exudate there, but no pus and no area of perforation. We slowly proceeded with the dissection and then saw that we had to put another port and we put this in the left lower abdomen and therefore we grabbed the tip of the mesoappendix pulled it inferiorly so that we can splay out the appendix more. We slowly freed the appendix up until we had it almost completely dissected free. We want to make sure that the bowel was not associated with it as we had pushed all of this away and did see the terminal ileum going into the cecum and saw there was some exudate on it, though there was no perforation or evidence of bowel compromise. This was just from the appendix. As such, the mesoappendix was quite thick and we had to take small bites. We used the endostapler to take 3 bites to go across the mesoappendix. We did not go far down as we want to make certain we stay close to the appendix as we did not want to injure any intra-abdominal contents. This was slowly done and we had the mesoappendix completely divided by then. You see the jacqui. There was no bleeding at all as well. We then stapled the bowel stapled to blue and it was stapled across the base of the appendix at the cecum and fired it and we saw that we could see both ends of the stapler and no intraabdominal contents were associated with this. This was then divided and the appendix had been removed. We then left the graspers on and through the inferior umbilical port placed the EndoCatch basket. Having done this, we then placed the appendix in this and we were able to pull it out. We then placed the port back in place and then inspected all areas and there was no bleeding and no other problems. We therefore inspected the aspirated some of the blood out and there was a little more blood than normal as we had to take down the adhesions and though there was no active bleeding at the time of closure, no evidence of perforation and no other abnormalities noted. The CO2 was aspirated from the abdomen, but before we had done this, we removed the port in the infraumbilical area and then closed the fascia using interrupted #0 Prolene sutures in a transverse fashion. We did this with direct visualization and pulling up with the sutures. We then injected 0.5% Marcaine with epinephrine for anesthesia. We did this under direct visualization in the abdomen and there was no perforation or injury of the bowel or other abnormalities and the insufflation of the anesthesia had been done successfully. We then cut the sutures, aspirated all the CO2 from the abdomen and then removed all the remaining ports. The wounds were irrigated with saline and the infraumbilical port site, we used 4-0 Vicryl to approximate the subcutaneous and a 5-0 subcuticular Vicryl to close the skin. The other ports, we used interrupted 5-0 Vicryl. The procedure having been terminated, we then placed a dressing of Tegaderm for each port and the procedure was terminated. The blood loss was about 50 mL. Fluids given can be obtained from the anesthesia sheet. No drains were used and the condition of the patient was satisfactory as she has returned to the recovery room. NIK BLACKBURN MD DR: PARMINDER/elvira JOB#: [id number] / [id number] KYLE Machado MD, DONALD MD
--- NOTE | 2020-06-25 17:05 | NUR ---
Discharge and follow up instructions reviewed and given to pt. Rx x3 given to pt for ibuprofen, Viola and Zofran ODT. I shredded one Rx that Dr. He wrote for lortab because it was the exact dose and # of pills as the Rx that Dr. Vargas left for pt. Pt verbalized understanding and denied any questions at this time. Pt is awaiting a ride from her son.
== END 2020-06-25 20:50 | disposition home or self-care (01) | DRG 343 ==
LOC: 3 NORTH 20:48
PROVIDERS: ADMIT Obstetrics & Gynecology; ATTEND Obstetrics & Gynecology
PROC: 0DTJ4ZZ Resection of Appendix, Percutaneous Endoscopic Approach (ICD-10-PCS; principal; 2020-06-24)
DX: K35.80 Unspecified acute appendicitis (principal); Z20.828 Contact with and (suspected) exposure to other viral communicable diseases; K66.0 Peritoneal adhesions (postprocedural) (postinfection); Z90.710 Acquired absence of both cervix and uterus
CPT/HCPCS: 36415; 74177; 76830; 80053; 81001; 82565; 85025; 85610; 86850; 86900; 86901; 87426; J0780; J1100; J1885; J2250; J2405; J2543; J2704; J2710; J3010; J3480; J3490; J7120; Q9967; U0003; G0378

== ENCOUNTER → 2021-04-10 | Outpatient (CLI) | payer BC ==
[2020-06-25 20:00] VITALS: BP 119/76
[~2021-04-10] MED LIST: HYDR-3164 PO; IBUP-1060 PO
--- NOTE | 2021-04-10 17:17 | KCIC ---
Bilateral digital screening mammograms with 3-D tomosynthesis: Reason for examination: Routine screening. Comparison is made to previous studies dated back to 11/21/2014. Bilateral mammograms in CC and oblique projections were obtained with 2-D imaging and 3-D tomosynthes is imaging on a Siemens Inspiration unit and reviewed on the workstation. Interpretation was made wit h the benefit of CAD. The skin and nipples show no abnormalities. No abnormal axillary lymph nodes are seen. Bilateral magaly st implants remain present. The breast parenchyma is extremely dense. (Breast density: Category D.) T here are no dominant masses, suspicious calcifications or architectural distortion. Impression: No evidence of malignancy. Recommend routine screening. Your patient's mammogram demonstrates that she has dense breast tissue (breast density category C or D), which could hide abnormalities, and if she has other risk factors for breast cancer that have bee n identified, she might benefit from supplemental screening tests that may be suggested by you as her ordering physician. Dense breast tissue, in and of itself, is a relatively common condition. Therefo re, this information is not provided to cause undue concern, but rather to raise your awareness and t o promote discussion with your patient regarding the presence of other risk factors, in addition to d ense breast tissue. Your patient's mammography results will be sent to her. BI-RAD Category 2: Benign. "Our facility is accredited by the [employer] Mammography [employer]." This patient's information has been entered into a reminder system for the patient to be notified wit h the results of her examination and a target date for the next mammogram. Electronically signed by: Jacqueline German MD (04/10/2021 5:15 PM) [id number]
== END ==
LOC: KCIC MAMMO 14:05
PROVIDERS: ATTEND Specialist
DX: Z12.31 Encounter for screening mammogram for malignant neoplasm of breast (principal)
CPT/HCPCS: 77063; 77067